=== PATIENT | female | born 1975 | race Caucasian/White ===

== ENCOUNTER 2017-01-03 11:39 | Emergency (ER) ==
[2017-01-03 11:49] VITALS: BP 124/75
[2017-01-03] MEDS ORDERED: DECADRON IM ONE (11:56)
[2017-01-03] MEDS ORDERED: NEURONTIN PO ONE (11:56)
--- NOTE | 2017-01-03 12:03 | PROVIDER DOCUMENTATION ---
HPI-Rash/Wound/ReCheck - General Chief Complaint: Rash Stated Complaint: RASH Time Seen by Provider: 01/03/17 11:52 Source: patient Allergies/Adverse Reactions: Allergies Allergy/AdvReac Type Severity Reaction Status Date / Time tetracycline [Tetracycline] Allergy Intermediate NAUSEA Verified 01/03/17 11:56 Home Medications: Home Medication List Medication Instructions Recorded Confirmed Last Taken Type Acyclovir [Zovirax] 800 mg PO 4XDAY #20 tablet 01/03/17 Unknown Rx Gabapentin [Neurontin] 300 mg PO DAILY #30 capsule 01/03/17 Unknown Rx Tramadol [Ultram] 50 mg PO Q6H PRN PRN #14 tablet 01/03/17 Unknown Rx - History of Present Illness-Dermatology Nature of Presenting Problem: This pt presents today c complaints of a very painful rash on the R side of her upper chest and neck. She denies any fever, chills, n/v/d. No facial involvement. No other issues or complaints. Location: reports: other (see hpi) Quality: reports: burning, painful Severity: reports: moderate Onset/Duration: reports: 4 days ago Timing: reports: still present Context/Associated Symptoms: reports: rash Similar Symptoms Previously?: No Recently seen or treated by another doctor?: No Review of Systems - Adult - REVIEW OF SYSTEMS - ADULT Constitutional: reports: no symptoms reported. denies: chills, fever Eyes: reports: no symptoms reported. denies: discharge, dry eyes Ears, Nose, Mouth & Throat: reports: no symptoms reported. denies: ear discharge, ear pain Cardiovascular: reports: no symptoms reported. denies: chest pain, edema Respiratory: reports: no symptoms reported. denies: chronic cough, cough Gastrointestinal: reports: no symptoms reported. denies: abdominal pain, hematemesis Genitourinary: reports: no symptoms reported. denies: dysuria, discharge Musculoskeletal: reports: no symptoms reported. denies: bone pain, back pain Integumentary: reports: see HPI, rash. denies: hives, hair loss Neurological: reports: no symptoms reported. denies: ataxia, dizziness/vertigo Psychiatric: reports: no symptoms reported. denies: anxiety, anti-depressant use Endocrine: reports: no symptoms reported Hematologic/Lymphatic: reports: no symptoms reported Allergic/Immunologic: reports: no symptoms reported All Other Systems: Reviewed and Negative Past History - Adult - PAST MEDICAL HISTORY-ADULT Review of Records: reports: Old Records Reviewed, Nursing Assessment Review, Medications Reviewed, Social history reviewed & non-contributory. Major Childhood Illnesses: reports: Influenza Cardiovascular: reports: denies history Respiratory: reports: denies history Gastrointestinal: reports: denies history Obstetrical/Gynecological: reports: denies history Genitourinary: reports: denies history Musculoskeletal: reports: denies history Neurological: reports: denies history Endocrine/Immune: reports: denies history Other Conditions: reports: denies history - IMMUNIZATION STATUS Childhood Immunizations: See Nurse Assessment Flu Vaccine: See Nurse Assessment Physical Exam-General - PHYSICAL EXAM-ADULT Initial Vital Signs Reviewed: Yes - CONSTITUTIONAL General Appearance: appears well, alert, no apparent distress - EYES Eyes: PERRL/EOMI, pink conjunctivae - HEAD, EARS, NOSE, MOUTH & THROAT HENMT: normocephalic/atraumatic, moist mucous membranes, normal ENT inspection - NECK Neck: full range of motion, supple, other (small area of vesicular rash to the R lateral neck) - RESPIRATORY Respiratory: chest non-tender, lungs clear, normal breath sounds, no pleuratic chest pain, no respiratory distress, no accessory muscle use - CARDIOVASCULAR Cardiovascular: normal peripheral pulses, regular rate, rhythm, no edema - CHEST (BREASTS) Chest/Breast: other (small area of vesicular rash) - GASTROINTESTINAL (ABDOMEN) Abdominal Exam: normal bowel sounds, non tender, soft, no organomegaly, no pulsatile mass - MUSCULOSKELETAL Back Exam: normal inspection, no CVA tenderness, no vertebral tenderness Extremity: normal range of motion, non-tender, normal gait, normal inspection, no pedal edema - SKIN Integumentary: normal turgor, warm/dry, zoster-like rash - NEUROLOGIC Neurologic: grossly normal, no motor/sensory deficits - PSYCHIATRIC Psych/Mental Status: normal mood/affect, normal thought content, normal thought process, oriented x 3 Progress - PLAN OF CARE/RESULTS Progress/Plan/Lab Results: Orders Category Date Time Status Dexamethasone [Decadron] Med 01/03/17 11:56 Discontinued 10 mg IM NOW ONE Gabapentin [Neurontin] Med 01/03/17 11:56 Discontinued 300 mg PO NOW ONE Vital Signs Temp Pulse Resp BP Pulse Ox 01/03/17 11:47 98.2 F 90 18 124/75 100 tetracycline [Tetracycline] Allergy (Intermediate, Verified 01/03/17 11:56) NAUSEA No Home Medications 01/03/17 Departure - Departure Time of Disposition Order: 12:00 DIAGNOSIS: Shingles rash Qualifiers: Herpes zoster complications: without complications Qualified Code(s): B02.9 - Zoster without complications Disposition: HOME 01 Certified Medical Emergency: Urgent Condition: Good Additional Instructions: Take medication as prescribed. Follow up with your primary care provider or extract wringer. ED Follow Up Instructions: You have been treated by a care provider in the Emergency Department. These instructions are being provided to you so you can have an understanding of how to care for yourself upon discharge. Upon discharge from the Emergency Department, you are responsible for making arrangements for follow-up care by a physician of your choice. Take all prescribed medications as directed. Return to the Emergency Department immediately for any new or worsening symptoms. You may call the Physician Referral phone number at [phone] to obtain a list of Physicians who are taking new patients. Prescriptions: Gabapentin [Neurontin] 300 mg PO DAILY #30 capsule Tramadol [Ultram] 50 mg PO Q6H PRN PRN #14 tablet PRN Reason: Pain Acyclovir [Zovirax] 800 mg PO 4XDAY #20 tablet Referrals: None,PCP [Primary Care Provider] - Nga Lacey MD [STAFF PHYSICIAN] - Attestation - Physician/ RICHAR Attestation Patient care was provided by Advanced Practice Provider:: Yes Advanced Practice Provider:: Justo Rush Advanced Practice Provider documentation review:: The Mid-level provider documentation, treatment plan and medical decision making was reviewed by the physician who agrees with all treatment and medical decision making by the MLP.
== END 2017-01-03 12:16 | disposition home or self-care (01) ==
LOC: ED 11:39
DX: B02.9 Zoster without complications (principal); R21 Rash and other nonspecific skin eruption
CPT/HCPCS: 96372